=== PATIENT | female | born 1950 | race Caucasian/White ===

== ENCOUNTER 2024-07-30 07:13 | Outpatient (OUT) | payer MEDICARE, SELFPAY ==
--- NOTE | 2024-07-30 07:33 | MM_ITS ---
Patient Name: DUC MATT MR#: [id number] : 1950 Exam Date: 07/30/2024 Ordering Doctor: DR NIXON HOLLEY RADIOLOGY REPORT PROCEDURE: MM TOMOSYNTHESIS SCREENING BI COMPARISON: MG MAMM SCREEN 3D MICHAEL CAD, 05/15/2022. MG MAMM SCREEN MICHAEL W CAD, 03/02/2020. MG MAMM SCREEN MICHAEL W CAD, 05/21/2017. MG MAMM MICHAEL SCRN W CAD DIG, 10/11/2012. INDICATIONS: Screening for malignant neoplasm Calculator Name NCI Breast Cancer Risk Assessment Tool 5 Year Breast Cancer Risk 2.60% Lifetime Breast Cancer Risk 6.40% Personal Breast Cancer No Personal Ovarian Cancer No Treatments None Family Cancers None LOCATION: [facility] BREAST COMPOSITION: There are scattered areas of fibroglandular density. FINDINGS: DIAGNOSTIC CATEGORY 1--NEGATIVE. LEFT BREAST: No significant suspicious finding. RIGHT BREAST: No significant suspicious finding. RECOMMENDATIONS: ROUTINE MAMMOGRAM AND CLINICAL EVALUATION IN 12 MONTHS. PLEASE NOTE: Dictated by: Jose Martin Plummer DO on 07/30/2024 at 16:02 Approved by: Jose Martin Plummer DO on 07/30/2024 at 16:03
== END 2024-07-30 07:14 | disposition home or self-care (01) ==
LOC: MAMMO 07:19
PROVIDERS: PCP Family Medicine; Visit Provider Family Medicine
DX: Z12.31 Encounter for screening mammogram for malignant neoplasm of breast (principal); Z78.0 Asymptomatic menopausal state; M85.80 Other specified disorders of bone density and structure, unspecified site
CPT/HCPCS: 77063; 77067; 77080